=== PATIENT | male | born 1990 | race Caucasian/White ===

== ENCOUNTER 2021-08-23 17:55 | Emergency (ER) | payer SELFPAY ==
[2021-08-23 18:05] VITALS: BP 138/90; PULSE 95; RESP 16; O2SAT 98
--- NOTE | 2021-08-23 19:46 | PC.NURSE ---
Didn't want to wait any longer, pt stated he was leaving and ambulated out of ED c steady, even, unassisted gait.
== END 2021-08-23 19:53 | disposition left against medical advice (07) ==
LOC: ANHED 19:52
PROVIDERS: PCP Family Medicine
DX: S61.011A Laceration without foreign body of right thumb without damage to nail, initial encounter (principal)
CPT/HCPCS: 99199

== ENCOUNTER 2021-12-10 18:56 | Emergency (ER) | payer SELFPAY ==
--- NOTE | 2021-12-10 19:01 | PC.NURSE ---
pt refusing nursing care. states he wants to leave. pt made aware of risks. states he has someone coming to pick him up. iv removed and pt ambulatory to lobby.
== END 2021-12-10 19:10 | disposition left against medical advice (07) ==
LOC: ANHED 19:08
PROVIDERS: PCP Family Medicine
DX: Z53.21 Procedure and treatment not carried out due to patient leaving prior to being seen by health care provider (principal)
CPT/HCPCS: 99199

== ENCOUNTER 2025-02-01 07:07 | Outpatient (CLI) | payer OTHER, SELFPAY ==
--- NOTE | ~2025-02-01 | MR_ITS ---
MRI of the lumbar spine Clinical History: Degenerative disc disease, radiculopathy Technique: Axial T2-weighted images, and sagittal T1-weighted, T2-weighted, and T2 fat-sat images wer e acquired. Findings: There is no fracture or subluxation of the lumbar spine. Vertebral bodies maintain normal h eight and alignment. There are type 1 Modic changes about the L4-L5 disc space due to underlying dege nerative disc disease. No other bone marrow signal abnormality seen. At L1-L2 and L2-L3, intervertebral discs are normal in signal and position. No disc bulge or herniati on at these levels. There is mild facet arthropathy. No central canal stenosis or neural foraminal na rrowing at these levels. At L3-L4, there is disc desiccation mild degenerative disc narrowing. There is mild central disc prot rusion. There is mild facet arthropathy. No central canal stenosis. Neural foramina are preserved. At L4-L5, there is moderate to advanced degenerative disc narrowing. There is diffuse disc bulge with mild facet arthropathy. No central canal stenosis. There is severe bilateral neural foraminal narrow ing. At L5-S1, there is no disc bulge or herniation. There is mild facet arthropathy. No central canal vania nosis or neural foraminal narrowing. Paravertebral soft tissues are unremarkable. Impression: Advanced degenerative spondylosis at L4-L5, as detailed above. Mild degenerative change at L3-L4. Reviewed, dictated and finalized at [facility]. Impression: Advanced degenerative spondylosis at L4-L5, as detailed above. Mild degenerative change at L3-L4.
--- NOTE | ~2025-02-01 | XR_ITS ---
XR lumbar spine min 4V 02/01/2025 07:50 Indication: Lumbar pain Procedure: 5 views lumbar spine Comparison: No prior studies for comparison. Findings: There is disc narrowing at L4-5. Vertebral body heights are maintained. Normal lumbar lordo sis. No evidence for spondylolisthesis. Mild levocurvature of the lumbar spine. Impression: 1: Mild spondylosis at L4-5. Reviewed, dictated and finalized at location A. Impression: 1: Mild spondylosis at L4-5.
== END 2025-02-01 07:08 | disposition home or self-care (01) ==
LOC: MICIMG 07:07
PROVIDERS: PCP Family Medicine; Visit Provider Physician Assistant
DX: M47.26 Other spondylosis with radiculopathy, lumbar region (principal)
CPT/HCPCS: 72110; 72148